=== PATIENT | male | born 1975 | race Caucasian/White ===

== ENCOUNTER 2016-11-19 08:21 | Outpatient (CLI) | payer BC ==
--- NOTE | 2016-11-19 13:16 | ULT ---
SCROTAL ULTRASOUND: Date: 11/19/16 INDICATION: Left scrotal pain without mass for 1.5 weeks. COMPARISON: None. FINDINGS: The right testicle measures 4.1 x 2.3 x 2.8 cm. The left testicle measures 3.8 x 2.4 x 3.0 cm. No in tratesticular mass or torsion is evident. There are bilateral hydroceles, left greater than right. IMPRESSION: 1. No evidence of intratesticular mass or torsion. 2. Bilateral hydroceles, left greater than right. POS: [facility]
== END 2016-11-19 08:22 | disposition home or self-care (01) ==
LOC: MADULT 08:21
PROVIDERS: ATTEND Family Medicine
DX: N50.819 Testicular pain, unspecified (principal); N43.3 Hydrocele, unspecified
CPT/HCPCS: 76870; 93976

== ENCOUNTER 2024-07-20 02:01 | Emergency (ER) | payer BC ==
[2024-07-20] MEDS ORDERED: Acetaminophen 500 MG TAB ONE (02:50)
[2024-07-20] MEDS ORDERED: cefTRIAXone (ROCEPHIN) 1 GM VIAL ONE (02:50)
[2024-07-20] MEDS ORDERED: Lidocaine 1% PF 5 ML VIAL ONE (02:53)
== END 2024-07-20 03:19 | disposition home or self-care (01) ==
LOC: MADERS 02:01
DX: K11.20 Sialoadenitis, unspecified (principal); E11.9 Type 2 diabetes mellitus without complications; I10 Essential (primary) hypertension; Z79.899 Other long term (current) drug therapy
CPT/HCPCS: 96372; 99283; J0696